=== PATIENT | female | born 1995 | race Caucasian/White ===

== ENCOUNTER 2019-03-03 09:14 | Outpatient (RCR) | payer OTHER | END 2019-06-01 | disposition home or self-care (01) | LOC: WSOH | DX: S29.012A Strain of muscle and tendon of back wall of thorax, initial encounter (principal); M62.830 Muscle spasm of back; X50.0XXA Overexertion from strenuous movement or load, initial encounter; Y93.89 Activity, other specified; Y92.214 College as the place of occurrence of the external cause; Y99.0 Civilian activity done for income or pay ==